=== PATIENT | male | born 1985 ===

== ENCOUNTER 2017-03-03 12:20 | Emergency (ER) | payer OTHER ==
[2017-03-03 12:31] VITALS: BP 120/81; PULSE 70; RESP 18; TEMP 97.7; O2SAT 100
--- NOTE | 2017-03-03 12:48 | ED PDOC ---
Lower Extremity Pain/Injury Time Seen by Provider: 03/03/17 12:37 Chief Complaint (Nursing): Lower Extremity Problem/Injury Chief Complaint (Provider): Ankle pain History Per: Patient History/Exam Limitations: no limitations Onset/Duration Of Symptoms: Days (x2) Current Symptoms Are (Timing): Still Present Additional Complaint(s): Jb is a 31 y/o male who presents to the ED complaining of left ankle pain, worsening since yesterday. Patient initially injured the ankle around 10 years ago, and suffered a tib/fib fracture requiring surgery. States he recently re- injured the ankle and had surgery [address] Luz. Yesterday cast was removed and patient was able to start bearing weight, and has had increasing pain since then. Taking pain medication as prescribed by pain management with no relief. Podiatry: Ramakrishna Luz DPM Past Medical History Reviewed: Historical Data, Nursing Documentation, Vital Signs Vital Signs: Last Vital Signs Temp 97.7 F 03/03/17 12:29 Pulse 70 03/03/17 12:29 Resp 18 03/03/17 12:29 BP 120/81 03/03/17 12:29 Pulse Ox 100 03/03/17 12:29 - Medical History PMH: Fractures (left tib/fib) - Surgical History Other surgeries: Left ankle surgery with Dr. Luz - Family History Family History: States: Unknown Family Hx - Allergies Allergies/Adverse Reactions: Allergies Allergy/AdvReac Type Severity Reaction Status Date / Time No Known Allergies Allergy Verified 03/03/17 12:28 Review of Systems ROS Statement: Except As Marked, All Systems Reviewed And Found Negative Musculoskeletal: Positive for: Foot Pain (Left ankle) Physical Exam - Reviewed Nursing Documentation Reviewed: Yes Vital Signs Reviewed: Yes - Physical Exam Appears: Positive for: Non-toxic, No Acute Distress Head Exam: Positive for: ATRAUMATIC, NORMAL INSPECTION, NORMOCEPHALIC Skin: Positive for: Normal Color, Warm, Dry Eye Exam: Positive for: Normal appearance Neck: Positive for: Normal Respiratory: Negative for: Respiratory Distress Extremity: Positive for: Other (Left lower extremity in boot) Neurologic/Psych: Positive for: Alert, Oriented - ECG O2 Sat by Pulse Oximetry: 100 (RA) Pulse Ox Interpretation: Normal Medical Decision Making Medical Decision Making: Time: 12:40 Initial Plan: --Paged podiatry for consult Patient was given Toradol 30 mg Inj IM. X-Ray Left Ankle ordered. 14:30. Podiatry resident evaluated patient at bedside, and discussed X-Ray results (no acute findings). Patient demanding medication stronger than Percocet. Currently has painter rough who prescribed him Percocet. Explained that once patient has a contract with pain management he needs to follow up there for all further pain prescriptions. Patient exhibiting drug seeking behaviors. Patient left ER without any visible acute pain. Scribe Attestation: Documented by Sydnee Barraza, acting as a scribe for Mickie Garcia PA-C Provider Scribe Attestation: All medical record entries made by the Scribe were at my direction and personally dictated by me. I have reviewed the chart and agree that the record accurately reflects my personal performance of the history, physical exam, medical decision making, and the department course for this patient. I have also personally directed, reviewed, and agree with the discharge instructions and disposition. Disposition - Clinical Impression Clinical Impression: Ankle pain - Patient ED Disposition Is Patient to be Admitted: No Counseled Patient/Family Regarding: Studies Performed, Diagnosis, Need For Followup - Disposition Disposition: Routine/Home Disposition Time: 14:40 Condition: STABLE Instructions: Arthralgia (ED) Forms: [employer] (Lao)
--- NOTE | 2017-03-03 18:00 | CP.PCM.CON ---
History of Present Illness - History of Present Illness History of Present Illness: 31 y/o male known to Dr. Luz's service seen in ED 3 weeks s/p left ankle surgery. Pt ambulates to the ED in a CAM walking boot with crutches. Pt states he is in a significant amount of pain since surgery and the Percocets do not help enough. Pt admits to seeing a pain management doctor and he wrote him a prescription for Oxymorphone, but no pharmacies carry it. Pt states he wants us to write a similar strength prescription. Pt says he can't make it through the weekend without something stronger than Percocet and he has things to do. Pt denies F/C/N/V/CP/SOB. Pt denies tingling, burning or numbness in the left lower extremity. Pt says the pain the same when he is bearing weight or not, and that it is constantly excruciating. Pt is in no acute distress at time of visit. PSH: left ankle oCD repair with ankle scope ([address] Luz) All: NKDA Review of Systems - Review of Systems All systems: reviewed and no additional remarkable complaints except (per HPI) Past Patient History - Past Social History Smoking Status: Never Smoked - MUSCULOSKELETAL/RHEUMATOLOGICAL Hx Fractures: Yes (left tib/fib) - PSYCHIATRIC Hx Substance Use: No - SURGICAL HISTORY Hx Surgeries: Yes Hx Orthopedic Surgery: Yes (Left ankle surgery) - ANESTHESIA Hx Anesthesia: Yes Hx Anesthesia Reactions: No Meds Allergies/Adverse Reactions: Allergies Allergy/AdvReac Type Severity Reaction Status Date / Time No Known Allergies Allergy Verified 03/03/17 12:28 Physical Exam - Constitutional Appears: Well, Non-toxic, No Acute Distress - Extremities Exam Additional comments: LLE focused examination: Vasc: DP/PT pulses palpable 2/4. Temp gradient warm to cool. CFT < 3sec to all digits. No significant pedal edema noted Derm: No erythema, no ecchymosis, no open lesions, no breaks in skin or soft tissue, no clinical suspicion of infection Neuro: Protective sensation grossly intact Ortho: No tenderness elicited upon palpation of surgical site. No tenderness elicited at any point during removal of CAM walking boot. - Neurological Exam Neurological exam: Alert, Oriented x3 - Psychiatric Exam Psychiatric exam: Normal Affect, Normal Mood Results - Vital Signs Recent Vital Signs: Last Vital Signs Temp 97.7 F 03/03/17 12:29 Pulse 70 03/03/17 12:29 Resp 18 03/03/17 12:29 BP 120/81 03/03/17 12:29 Pulse Ox 100 03/03/17 14:57 Assessment & Plan - Assessment and Plan (Free Text) Assessment: 31 y/o male seen in ED 3 weeks s/p left ankle surgery with arthroscopy and OCD repair, seeking pain management for postoperative pain Plan: Pt seen and evaluated in ED Discussed plan with attending Dr. Luz X-rays of L ankle reviewed, internal fixation intact and in good alignment with no osseous changes or bony callus formation noted. No new acute fractures or dislocations present Pt demonstrating drug seeking behavior, informed that since he sees a pain management doctor he is under contract to be treated by him for severe pain not controlled by his current meds Pt left frustrated from ED, saying he will go elsewhere - able to walk out the door without difficulty, not realizing he forgot his crutches behind until a staff member notified him Pt will likely continue to follow up with Dr. Luz as outpatient for post- surgical visits
--- NOTE | 2017-03-04 13:04 | RAD ---
PROCEDURE: Left Ankle Radiographs. HISTORY: 3 wks s/p left ankle surgery COMPARISON: None FINDINGS: BONES: Patient status post open reduction and internal fixation of an apparent healed distal left tibial fracture reduced by a solitary compression plate and numerous compression screws as well as an independent solitary compression screw. Further, ankle mortise appears intact and no interval fractures identified. JOINTS: Normal. No osteoarthritis. Talar dome intact SOFT TISSUES: Normal. OTHER FINDINGS: None. IMPRESSION: Status post ORIF distal tibial fracture appearing healed. No fracture plane is identifiable radiographically however splint obscures fine bony and soft-tissue detail. Clinically correlate further.
== END 2017-03-03 14:45 | disposition home or self-care (01) ==
LOC: H.ER 12:20
DX: G89.18 Other acute postprocedural pain (principal); F42.9 Obsessive-compulsive disorder, unspecified
CPT/HCPCS: 73610; 96372; 99281; J1885